=== PATIENT | female | born 1955 ===

== ENCOUNTER 2021-12-04 10:30 | Inpatient (IN) | payer OTHER ==
[~2021-12-04] VITALS: Ht 162.6 cm; Wt 72.6 kg
[2021-12-04] MEDS ORDERED: PRAVASTATIN SOD20 MG (12:22)
[2021-12-04] MEDS ORDERED: MORGIDOX100 MG (12:23)
[2021-12-04] MEDS ORDERED: PROLIA60 MG/1 ML (12:49)
[2021-12-07] MEDS ORDERED: SYNTHROID112 MCG PO (09:26)
== END 2021-12-07 10:02 | disposition home or self-care (01) | DRG 627 ==
LOC: SURG 12-06 06:34 → O/R 12-06 06:34 → SURG 12-06 08:58 → SURH 12-06 09:15 → SURG 12-07 10:02
PROVIDERS: ADMIT Surgery; ATTEND Surgery
PROC: 07T20ZZ Resection of Left Neck Lymphatic, Open Approach (ICD-10-PCS; 2021-12-06)
PROC: 07T10ZZ Resection of Right Neck Lymphatic, Open Approach (ICD-10-PCS; 2021-12-06)
PROC: 0GTK0ZZ Resection of Thyroid Gland, Open Approach (ICD-10-PCS; principal; 2021-12-06 09:15)
DX: C73 Malignant neoplasm of thyroid gland (principal); Z20.822 Contact with and (suspected) exposure to COVID-19